=== PATIENT | female | born 1985 | race Caucasian/White ===

== ENCOUNTER 2017-07-06 09:37 | Emergency (ER) | payer MEDICAID, OTHER ==
[~2017-07-06] VITALS: Ht 167.6 cm; Wt 61.2 kg
[2017-07-06] MEDS ORDERED: NKM (09:53)
[2017-07-06] MEDS ORDERED: Lidocaine 1% Plain 30 ml INJ ONE (10:00)
--- NOTE | 2017-07-06 10:26 | Emergency Room Report ---
History of Present Illness General Chief Complaint: Lower Extremity Injury Source: Patient Present Illness HPI 32-year-old female no significant past medical history presenting with left fourth digit toe pain. Patient states that she was playing with her daughter, tripped and caught her left toe stuck onto a door, did not hit her head no LOC no other injuries Allergies: Coded Allergies: No Known Allergies (Unverified , 07/06/17) Patient History Past Medical History: see triage record Past Surgical History: none Pertinent Family History: none Last Menstrual Period: 07/03/17 Reviewed Nursing Documentation: PMH: Agreed, PSxH: Agreed Nursing Documentation-PMH Past Medical History: No Stated History Review of Systems All Other Systems: negative except mentioned in HPI Physical Exam Vital Signs Date Time Temp Pulse Resp B/P (MAP) Pulse Ox O2 Delivery O2 Flow Rate FiO2 07/06/17 09:41 98.1 83 16 125/81 100 Room Air Sp02 EP Interpretation: reviewed, normal General Appearance: normal inspection, well appearing, no apparent distress, alert, GCS 15, non-toxic Head: normocephalic, atraumatic Eyes: bilateral eye normal inspection, bilateral eye PERRL, bilateral eye EOMI ENT: normal ENT inspection, normal pharynx, normal voice, moist mucus membranes Neck: normal inspection, full range of motion, supple Respiratory: normal inspection, lungs clear, normal breath sounds, no respiratory distress, no retraction, no wheezing, speaking full sentences, chest symmetrical Cardiovascular #1: normal inspection, regular rate, rhythm, no edema, normal capillary refill Cardiovascular #2: 2+ radial (R), 2+ radial (L) Gastrointestinal: normal inspection, non tender, soft, non-distended, no guarding Musculoskeletal: other - Left fourth toe appears to be deformed, dislocated at the PIP joint Neurologic: normal inspection, alert, oriented x3, responsive, motor strength/ tone normal, sensory intact, normal gait, speech normal Psychiatric: normal inspection, judgement/insight normal, memory normal Skin: normal inspection, normal color, no rash, warm/dry, well hydrated, normal turgor Procedures Joint Reduction Joint Reduction : Consent: Verbal Joint Reduction Site: other - L 4th toe Procedural Sedation: No Reduction Attempts: One Pre-Procedure NV Exam: Yes Post-Procedure NV Exam: Yes Post Joint Reduction Film: joint reduced Patient Tolerated: Well Complications: None Progress 3cc 1% lidocaine for digital block Medical Decision Making Diagnostic Impression: Primary Impression: Dislocation of toe, left, closed ER Course 32-year-old female with left fourth toe dislocation DDX: Dislocation rule out fracture Plan: XR Reduction ER course: Left fourth toe reduced, with 1% lidocaine Postreduction films adequate Patient discharged with hard sole shoe Disposition: Patient is to be discharged home Discharge with hard sole shoe Patient educated to rest, ice, and elevate extremity and to avoid vigorous activity. Strict precautions discussed with patient on when to return to the emergency room including increased redness or swelling joints, increased pain/swelling of extremity, fever or chills, which could indicate severe illness. Patient is to follow up with their primary care doctor within 5 days. Patient also instructed to follow up with an orthopedic doctor in one week if not better Please note that this Emergency Department Report was dictated using [employer] computer technology software, occasionally this can lead to erroneous entry secondary to interpretation by the dictation equipment. Xray ordered: Left foot 3 view Indication: Pain EP Interpretation: Yes Interpretation: Dislocated left fourth toe at PIP joint Impression: Left fourth toe dislocation Electronically signed by Jossy Sanchez MD Xray: Left foot Complete Indication: Postreduction EP Interpretation: Yes Interpretation: Successful reduction, no fracture seen Impression: No acute disease Electronically signed by Jossy Sanchez MD PAtient DCed with hard sole shoe D/W radiology after patient returned, patient manuell noted to have prox phalanx fracture atempted to call patient however no phone number on file wanted to inform her of fx and need to fu with ortho certified letter sent. Last Vital Signs Date Time Temp Pulse Resp B/P (MAP) Pulse Ox O2 Delivery O2 Flow Rate FiO2 07/06/17 09:41 98.1 83 16 125/81 100 Room Air Disposition: HOME, SELF-CARE Condition: Improved Scripts Acetaminophen* (ACETAMINOPHEN EXTRA STRENGTH*) 500 Mg Tablet 500 MG ORAL Q8H Y for Fever/Headache/Mild Pain, #30 TAB 0 Refills Prov: Jossy Sanchez M.D. 07/06/17 Referrals: REGAL ESTEFANÍA BETTS,REFERRING (PCP) Jossy Sanchez M.D. Jul 06, 2017 10:26
[2017-07-06 10:56] VITALS: BP 118/76
[2017-07-06] MEDS ORDERED: ACETAMINOPHEN500 M3 ORAL (11:00)
[2017-07-06 11:04] VITALS: BP 118/76
--- NOTE | 2017-07-06 11:04 | Diagnostic Imaging Report ---
Indication: PAIN Technique: 3 views left foot Comparison: none Findings: No acute fractures. No dislocations. Joint spaces are preserved. Impression: Negative
--- NOTE | 2017-07-06 12:42 | Diagnostic Imaging Report ---
Indication: PAIN Technique: 3 views left foot Comparison: none Findings: There is inferolateral subluxation or dislocation of the proximal interphalangeal joint. There is a minimally displaced oblique fracture of the shaft of the fourth proximal phalanx. No other acute fractures. There is minimal hallux valgus. Slight soft tissue swelling about the head of the first metatarsal is noted, could be chronic or acute. The joint spaces are preserved. Impression: Positive for subluxation/dislocation of the fourth proximal interphalangeal joint. This was recognized by the ED physician, as a subsequent is reduction image is available Positive for fracture of the fourth proximal phalanx. This finding was discussed by phone with Dr. Sanchez in the emergency room previously
== END 2017-07-06 11:04 | disposition home or self-care (01) ==
LOC: EMR 10:11
DX: S93.115A Dislocation of interphalangeal joint of left lesser toe(s), initial encounter (principal); W23.0XXA Caught, crushed, jammed, or pinched between moving objects, initial encounter; Y92.89 Other specified places as the place of occurrence of the external cause
CPT/HCPCS: 28660; 73630; 99284; J2001; Z7502